=== PATIENT | female | born 2000 | race Caucasian/White ===

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

== ENCOUNTER → 2022-11-02 | Outpatient (CLI) | payer BC ==
[~2022-11-02] MED LIST changes: +CLARITIN10 MG PO; +FAMO20 PO; +MYDAYIS ER 25 M25 MG PO
[2022-11-06 00:09] LABS: CHLAMYDIA BY NAA Negative (Negative); GONOCOCCUS BY NAA Negative (Negative); TRICH VAG BY NAA Negative (Negative)
== END ==
LOC: LAB SHORT 16:11 → LAB 16:11
PROVIDERS: Family Medicine
DX: Z20.2 Contact with and (suspected) exposure to infections with a predominantly sexual mode of transmission (principal)
CPT/HCPCS: 87491; 87591; 87661

== ENCOUNTER → 2023-02-22 | Outpatient (CLI) | payer BC ==
[2023-02-22 15:33] LABS: Candida species (DNA Probe) Negative (NEGATIVE); G. vaginalis (DNA Probe) Negative (NEGATIVE); T. vaginalis (DNA Probe) Negative (NEGATIVE)
[2023-02-24 01:07] LABS: CHLAMYDIA TRACHOMATIS, NAA Negative (Negative)
== END | disposition home or self-care (01) ==
LOC: LAB SHORT 11:38 → LAB 11:38
PROVIDERS: Advanced Practice Midwife
DX: Z11.3 Encounter for screening for infections with a predominantly sexual mode of transmission (principal); N76.0 Acute vaginitis
CPT/HCPCS: 87480; 87491; 87510; 87591; 87660

== ENCOUNTER 2024-03-16 11:19 | Observation (INO) | payer BC ==
[~2024-03-16] VITALS: Ht 162.6 cm; Wt 83.9 kg
[2024-03-16 11:59] VITALS: BP 121/79
[2024-03-16 12:29] LABS: BASOPHILS ABSOLUTE AUTO 0.06 K/mm3 (0.00-0.23); BASOPHILS PERCENT AUTO 1 % (0-2); EOSINOPHILS ABSOLUTE AUTO 0.04 K/mm3 (0.00-0.68); EOSINOPHILS PERCENT AUTO 1 % (0-6); Hemoglobin 15.7 g/dL (11.5-16.0); IMMATURE GRAN ABSOLUTE AUTO 0.02 K/mm3 (0.00-0.10); IMMATURE GRAN PERCENT AUTO 0 % (0-1); LYMPHOCYTES ABSOLUTE AUTO 2.86 K/mm3 (0.84-5.20); LYMPHOCYTES PERCENT AUTO 35 % (21-46); MONOCYTES ABSOLUTE AUTO 0.74 K/mm3 (0.16-1.47); MONOCYTES PERCENT AUTO 9 % (4-13); Mean Corpuscular HGB 31.7 pg (26.0-34.0); Mean Corpuscular HGB Conc 34.9 g/dL (31.5-36.5); Mean Corpuscular Volume 91 fL (80-100); Mean Platelet Volume 9.5 fL (9.1-12.4); NEUTROPHILS ABSOLUTE AUTO 4.55 K/mm3 (1.96-9.15); NEUTROPHILS PERCENT AUTO 55 % (41-73); Platelet Count 345 K/mm3 (150-400); RDW Coefficient Variation 11.9 % (11.7-14.2); RDW Standard Deviation 39.8 fL (35.1-46.3); Red Blood Cell Count 4.96 M/mm3 (3.80-5.20); White Blood Cell Count 8.27 K/mm3 (4.00-11.30)
[2024-03-16 13:03] LABS: Ethanol (Alcohol), Blood, Med <3 mg/dL; Salicylate <1.7 mg/dL (2.8-20.0)
[2024-03-16 13:08] LABS: Alanine Aminotransfer (ALT/SGP 21 U/L (12-78); Albumin, Blood 4.2 g/dL (3.4-5.0); Alk Phos 104 U/L (50-136); Anion Gap 12 mmol/L (3-11); Aspartate Aminotrans (AST/SGOT 21 U/L (12-37); Bilirubin, Total 0.9 mg/dL (0.1-1.0); Blood Urea Nitrogen 10 mg/dL (8-24); Bun/Creatinine Ratio 14.4 (12.0-20.0); CO2, Blood 20 mmol/L (21-32); Calcium, Blood 9.5 mg/dL (8.5-10.1); Chloride, Blood 107 mmol/L (98-108); Globulin, Blood 4.1 g/dL (2.2-4.0); Glomerular Filtration Rate 126 (60-); Glucose, Blood 93 mg/dL (70-99); Sodium, Blood 135 mmol/L (136-145); Total Protein, Blood 8.3 g/dL (6.4-8.2)
[2024-03-16 13:09] LABS: Acetaminophen, Random <2.0 ug/mL (10.0-30.0)
[2024-03-16 14:35] LABS: Source, Urine Clean Catch
[2024-03-16 14:42] LABS: Appearance, Urine Clear (Clear); Bilirubin, Urine Neg (Neg); Blood, Urine Neg (Neg); Color, Urine Yellow (P-Yellow); Glucose Qualitative, Urine Neg (Neg); Ketones, Urine 4+ (Neg); Leukocyte Esterase, Urine Neg (Neg); Nitrite, Urine Neg (Neg); Protein, Urine Neg (Neg); Urobilinogen, Urine NORM (Normal)
[2024-03-16 15:06] LABS: U Amphetamine Screen Not Detected; U Barbituate Screen Not Detected; U Benzodiazapine Screen Not Detected; U Buprenorphine Screen Not Detected; U Cannabinoids Screen DETECTED; U Cocaine Screen Not Detected; U Methadone Screen Not Detected; U Methamphetamine Screen Not Detected; U Opiates Screen Not Detected; U Oxycodone Screen Not Detected; U Phencyclidine Screen Not Detected
[2024-03-16 15:59] LABS: Influenza A, PCR NEGATIVE (NEGATIVE); Influenza B, PCR NEGATIVE (NEGATIVE); Resp Syncytial Virus, PCR NEGATIVE (NEGATIVE); SARS-Cov-2 (COVID-19) PCR, MMC NEGATIVE (NEGATIVE)
== END 2024-03-16 17:55 | disposition other institution (70) ==
LOC: ER 11:19 → EOR 11:20
PROVIDERS: Physician Assistant; Student in an Organized Health Care Education/Training Program; ADMIT Psychiatry & Neurology Psychiatry
DX: F31.9 Bipolar disorder, unspecified (principal); R45.851 Suicidal ideations; F95.2 Tourette's disorder; F42.9 Obsessive-compulsive disorder, unspecified; Z79.899 Other long term (current) drug therapy
CPT/HCPCS: 0241U; 80053; 80320; 81003; 81025; 85025; 99285-25; G0378; G0480

== ENCOUNTER 2024-03-16 15:41 | Inpatient (IN) | payer BC ==
[~2024-03-16] VITALS: Ht 162.6 cm; Wt 85.9 kg
[2024-03-16 18:09] VITALS: BP 129/83
[2024-03-16] MEDS ORDERED: FLU VACC TS2024-25(6MOS UP)/PF 45 MCG/0.5 ML SYRINGE IM SCH (18:15)
[2024-03-16] MEDS ORDERED: Ibuprofen 600 MG Tab PO PRN (18:15)
[2024-03-16] MEDS ORDERED: Aluminum Hydroxide 320MG/5ML 473 ML PO PRN (18:15)
[2024-03-16] MEDS ORDERED: Acetaminophen 325 MG TABLET PO PRN (18:15)
[2024-03-16 20:40] VITALS: BP 129/83
[2024-03-16] MEDS ORDERED: TraZODone HCl 100 MG Tab PO SCH (21:00)
[2024-03-16] MEDS ORDERED: Ziprasidone HCL 20 MG Cap PO SCH (21:00)
--- NOTE | 2024-03-16 21:11 | NUR ---
ADMISSION NOTE: PATIENT ARRIVED ON U, AND WAS ADMITTED AT 2000 AFTER CHANGE OF SHIFT. SHE WAS COOPERATIVE AND PLEASANT. SHE IS INVESTED IN LEARNING HOW TO GAIN BETTER COPING SKILLS AND A GOOD MEDICATION REGIMEN. PATIENT THEN WENT TO GROUP ROOM, WHERE SHE WAS NOTED TO BE COLORING WITH PEER/ROOMMATE.
[2024-03-16 21:15] VITALS: BP 134/77
--- NOTE | 2024-03-17 05:03 | NUR ---
PATIENT ARRIVED ON UNIT JUST BEFORE THE BEGINNING OF SHIFT. SHE WAS COOPERATIVE THROUGHOUT ADMISSION PROCESS, THEN WENT IN THE GROUP ROOM WITH PEERS. SHE JOINED THE GROUP IN THE DINING ROOM FOR SNACK TIME AND WAS COMPLIANT WITH MEDICATIONS. SHE WENT BACK TO THE GROUP ROOM FOR A TIME, AND THEN WENT TO BED. SHE WAS NOTED TO BE RESTING QUIETLY WITH EYES CLOSED AND RESPIRATIONS CONFIRMED THROUGHOUT THE REMAINDER OF THE SHIFT. SHE HAD NO S/SX SUICIDAL IDEATION THIS SHIFT. CONTINUING TO MONITOR FOR SAFETY WITH Q15 MINUTE CHECKS.
[2024-03-17 08:09] VITALS: BP 131/79
--- NOTE | 2024-03-17 18:05 | NUR ---
PT DENIED SI, HI, AVH AND PAIN. SHE ENDORSED "A TINY BIT OF ANXIETY." SHE IS OUT IN THE PT [place] AND APPEARS TO BE IN GOOD HUMOR. SHE RECEIVED A CALL FROM HER MOTHER WHICH APPEARED TO BE A POSITIVE EXPERIENCE.
[2024-03-18 00:43] VITALS: BP 161/72
--- NOTE | 2024-03-18 04:26 | NUR ---
PATIENT WAS UP WITH STAFF AND PEERS AT THE BEGINNING OF THE SHIFT, IN THE GROUP ROOM. SHE JOINED THE GROUP FOR 2000 SNACK TIME. SHE WAS PLEASANT AND COOPERATIVE WITH CARES. SHE STATED THAT SHE WAS DOING WELL BUT WAS A BIT SAD "THAT I'M IN THIS SITUATION". SHE STATED THAT SHE WAS COMFORTABLE ON THE UNIT. SHE WENT TO BED AFTER EVENING MEDICATIONS AND WAS NOTED TO BE RESTING QUIETLY WITH EYES CLOSED AND RESPIRATIONS CONFIRMED THE REMAINDER OF THE SHIFT. SHE HAD NO S/SX SUICIDAL IDEATION THIS SHIFT. CONTINUING TO MONITOR FOR SAFETY WITH Q15 MINUTE CHECKS.
[2024-03-18 08:13] VITALS: BP 84/51
--- NOTE | 2024-03-18 17:04 | NUR ---
SHIFT SUMMARY PT AxOx4. PLEASANT AND COOPERATIVE WITH CARE. PT DENIES SI/HI AND AVH THIS AM. SHE REPORTED HER MOOD TO BE GOOD, BUT REALLY SLEEPY THIS AM. SHE REQUESTED THAT SHE ONLY TAKES HALF HER SLEEP MEDS TONIGHT SO SHE ISN'T SO TIRED TOMORROW. PT HAS BEEN FOLLOWING HER CARE PLAN TODAY INCLUDING TAKING MEDS PRESCRIBED, PARTICIPATING IN GROUP ACTIVITES AND MINGLING APPROPRIATELY ON THE UNIT. PT ALSO HAD VISIT FROM HER MOM AND DAD TODAY. PT'S MOM, FREDI TILLEY, REPORTED TO THIS RN TODAY THAT THE PT REVEALED TO HER THAT SHE IS STILL HAVING HALLUCINATIONS, AND THAT SHE WAS KEEPING THIS INFO FROM THE [facility] STAFF. PROVIDER NOTIFIED. SHE IS CURRENTLY EATING DINNER. DENIES ANY NEEDS AT THIS TIME.
[2024-03-18 21:48] VITALS: BP 142/86
--- NOTE | 2024-03-18 22:08 | NUR ---
tHE BEGINING OF SHIFT PT UP IN DINING AREA HAVING NIGHT SNACKS. B/P WAS 142/121.. AFTER RECHECKING IN HOUR B/P WAS 143/86.. WILL CONTINUE TO MONITOR IT IF SHE SHOULD WAKE DURING THE NIGHT. STATES SHE HAS GREAT FAMILY SUPPORT TO HER WHEN SHE LEAVES HERE. SHE WANTED ONLY HALF OF HER TARAZODONE TABLET THIS EVENING SHE SAID SHE IS TO DROWSY IN THE MORNINGS. GIVEN HALF DOSE OF 50MG AND SAVED THE OTHER HALF INCASE SHE SHOULD WAKE IN THE NIGHT AND NEED IT. SHE SAID 'OK' WITH THAT. IN BED WITH EYES CLOSED. RESPIRATIONS PRESENT. WILL CONTINUE TO MOITOR.
--- NOTE | 2024-03-19 04:22 | NUR ---
PT SLEPT THROUGH THE NIGHT ON TRAZADONE 50MG. THE OTHER 50MG WASTED BY 2 RNS, SIMÓN AND SARAHI, PT DID NOT AWAKEN AND NEED IT. WILL PASS THIS IN REPORT. PT AYS SHE HAS A GREAT SUPPORT SYSTEM FOR WHEN SHE GOES HOME. DENIES SI, HI,AV,AH. WILL CONTINUE TO MONITOR .
[2024-03-19 08:58] VITALS: BP 139/77
--- NOTE | 2024-03-19 17:25 | NUR ---
SHIFT SUMMARY PT IS AxOx4. PLEASANT AND COOPERATIVE WITH CARE. PT DENIED SI/HI AND AVH THIS SHIFT. SHE HAS BEEN FOLLOWING TREATMENT PLAN INCLUDING TAKING MEDS PRESCRIBED AND MINGLING ON THE UNIT WITH PEERS STAFF, ALTHOUGH SHE HAS A SHY DEMEANOR AND MOSTLY KEEPS TO HERSELF. SHE ATTENDED 1 GROUP TODAY. PT IS REQUESTING TO DISCHARGE BEFORE THANKSGIVING. CARE TEAM MADE AWARE. MED CHANGES ORDERED BY PROVIDER TO BE INITIATED TONIGHT. PT NOTIFED AND AGREEABLE. PT IS CURRENLTY EATING DINNER IN THE VISITOR ROOM WITH HER PARENTS. SHE DENIES ANY NEEDS AT THIS TIME.
[2024-03-19 20:53] VITALS: BP 124/79
[2024-03-19] MEDS ORDERED: TraZODone HCl 50 MG Tab PO SCH (21:00)
[2024-03-19] MEDS ORDERED: Ziprasidone HCL 20 MG Cap PO SCH (21:00)
--- NOTE | 2024-03-20 04:13 | NUR ---
SHIFT SUMMARY PT HAS DENIED ANY SI, HI OR AVH. SHE IS PLEASANT AND COOPERATIVE WITH CARE. SHE IS SOFT SPOKEN, BUT INTERACTS WITH STAFF AND PEERS. PT HAD EVENING SNACK, ASKED FOR NIGHT TIME MEDS AND THEN WENT IN SENSORY ROOM WHERE SHE COLORED AND PLAYED BOARD GAMES WITH PEERS. PT WENT TO HER ROOM SHORTLY AFTER 2200 AND HAS REMAINED IN HER ROOM, APPEARS TO BE SLEEPING. Q15 MINUTE CHECKS CONTINUED PER UNIT PROTOCOL.
[2024-03-20 08:27] VITALS: BP 147/87
--- NOTE | 2024-03-20 17:50 | NUR ---
SHIFT SUMMARY PT AxOx4. PLEASANT AND COOPERATIVE WITH CARE. PT DENIED ALL SYMPTOMS OF SI/HI OR A/V/T HALLUCINATIONS. SHE REPORTS A "GOOD" MOOD TODAY. PT WAS FOLLOWING TREATMENT PLAN THIS SHIFT INCLUDING TAKING MEDS PRESCRIBED, ATTENDING GROUPS AND MINGLING APPROPRIATELY ON UNIT. PT REPORTS FEELING READY TO DC TOMORROW AND IS LOOKING FORWARD TO IT. HER MOM AND DAD ARE HERE FOR A VISIT AND SHE IS CURRENTLY EATING DINNER IN THE VISITOR ROOM.
[2024-03-20 22:09] VITALS: BP 115/87
--- NOTE | 2024-03-21 04:09 | NUR ---
SHIFT SUMMARY PT HAS BEEN ALERT, ORIENTED, COOPERATIVE WITH CARE. SHE STATED SHE WAS FEELING GOOD AND LOOKING FORWARD TO GOING HOME. SHE DENIED ANY SI, HI, AND AVH. SHE WAS PRESENT IN GROUP ROOM, WATCHED TV, COLORED AND HAD EVENING SNACK. INTERACTIVE WITH STAFF AND PEERS. SHE WENT TO BED AROUND 2200 AND WAS UP ONE TIME WITH DIFFICULTY SLEEPING. CHAMOMILE TEA GIVEN AND PT HAS REMAINED IN HER ROOM, APPEARS TO BE SLEEPING, EYES CLOSED, RESPIRATIONS EVEN AND UNLABORED. Q15 MINUTE CHECKS WILL CONTINUE PER UNIT PROTOCOL.
[2024-03-21] MEDS ORDERED: ZIPR60 PO (08:00)
[2024-03-21] MEDS ORDERED: TRAZ50 PO (08:00)
--- NOTE | 2024-03-21 09:38 | NUR ---
DISCHARGE PT DISCHARGED TO HOME WITH MOM PROGRESSIVE DIE MAKER. PT DENIES ANY SI/HI OR AVH DURING AM ASSESSMENT AND REPORTS FEELING GOOD AND READY TO GO HOME. PT EXCITED TO GO TO [employer] [facility] AT DISCHARGE. PT SMILING AND HUGGING PEERS AT DISCHARGE. PT PROVIDED WITH DISCHARGE EDUCATION, PERSONAL BELONGINGS RETURNED, AND ESCORTED TO EXIT BY A STAFF.
== END 2024-03-21 09:37 | disposition home or self-care (01) | DRG 885 ==
LOC: BHU 15:41
PROVIDERS: ADMIT Psychiatry & Neurology Psychiatry
DX: F31.60 Bipolar disorder, current episode mixed, unspecified (principal); R45.851 Suicidal ideations; F95.2 Tourette's disorder; F39 Unspecified mood [affective] disorder; Z79.899 Other long term (current) drug therapy
CPT/HCPCS: 93005; 93010; A9270

== ENCOUNTER → 2025-04-20 | Outpatient (CLI) | payer BC ==
[~2025-04-20] MED LIST changes: +TRAZ50 PO; +ZIPR60 PO
[2025-04-21 07:29] LABS: Candida Group, PCR NOT DETECTED (NOT DETECT); Candida glabrata-krusei, PCR NOT DETECTED (NOT DETECT)
[2025-04-21 07:32] LABS: Bacterial Vaginosis PCR Positive (NEGATIVE)
== END ==
LOC: LAB 10:00 → LAB SHORT 10:00
PROVIDERS: Family Medicine
DX: N76.0 Acute vaginitis (principal); B96.89 Other specified bacterial agents as the cause of diseases classified elsewhere
CPT/HCPCS: 81515